=== PATIENT | female | born 1965 | race Caucasian/White ===

== ENCOUNTER → 2020-10-30 07:36 | Outpatient (CLI) | payer BC, SELFPAY ==
--- NOTE | ~2020-10-30 | XR_ITS ---
EXAMINATION: XR knee RT min 4V DATE: 10/30/2020 07:57 INDICATION: Right knee stiffness. TECHNIQUE: 4 views of right knee were obtained. COMPARISON: None. FINDINGS: Bone alignment is normal. No fracture. There is mild tricompartmental osteoarthritis. No kn ee joint effusion. IMPRESSION: 1. Mild right knee osteoarthritis. Reviewed, dictated and finalized at location B. R WORKER
== END ==
PROVIDERS: PCP Family Medicine; Visit Provider Physician Assistant Medical
DX: M17.11 Unilateral primary osteoarthritis, right knee (principal)
CPT/HCPCS: 73564

== ENCOUNTER → 2020-11-12 08:09 | Outpatient (CLI) | payer BC, SELFPAY ==
--- NOTE | ~2020-11-12 | US_ITS ---
US abdomen complete DATE: 11/12/2020 08:28 INDICATION: Elevated liver enzymes TECHNIQUE: Real-time and color flow imaging and Doppler analysis of the abdomen. COMPARISON: None FINDINGS: No hepatic or pancreatic space-occupying mass lesion. Normal hepatopedal portal vein flow d irection. No gallstones or gallbladder wall thickening. Negative sonographic Frank's sign. Common bi le duct measures 3 mm, normal. Normal caliber of the abdominal aorta. The inferior vena cava is unremarkable. Normal splenic size. Right kidney measures 12.2 cm length, left kidney 11.2 cm. No renal mass lesion or hydronephrosis. IMPRESSION: Normal examination Reviewed, dictated and finalized at Location [facility]. Reviewed, dictated and finalized at location A. HINOLARYNGOLOGIST IMPRESSION: Normal examination
== END ==
PROVIDERS: PCP Family Medicine; Visit Provider Family Medicine
DX: R74.8 Abnormal levels of other serum enzymes (principal)
CPT/HCPCS: 76700

== ENCOUNTER 2021-05-31 09:52 | Outpatient (CLI) | payer BC, SELFPAY ==
--- NOTE | 2021-05-31 10:14 | ECG_ITS ---
Measurements Intervals [place] Rate: 59 P: 68 NM: 159 QRS: 29 QRSD: 86 T: 18 QT: 384 QTc: 382 Interpretive Statements SINUS BRADYCARDIA BORDERLINE ECG Electronically Signed On 05-31-2021 11:48:12 CDT by Tyson Mullen D.O.
== END 2021-05-31 09:53 | disposition home or self-care (01) ==
PROVIDERS: PCP Family Medicine; Visit Provider Nurse Practitioner Family
DX: R53.1 Weakness (principal); R42 Dizziness and giddiness; R94.31 Abnormal electrocardiogram [ECG] [EKG]
CPT/HCPCS: 93005

== ENCOUNTER 2021-07-09 08:39 | Outpatient (CLI) | payer BC, SELFPAY | END 2021-07-09 08:40 | disposition home or self-care (01) | LOC: ANHBWCAUD 09:02 | PROVIDERS: PCP Family Medicine; Visit Provider Otolaryngology | DX: H93.12 Tinnitus, left ear (principal); H90.42 Sensorineural hearing loss, unilateral, left ear, with unrestricted hearing on the contralateral side | CPT/HCPCS: 92557; 92567 ==

== ENCOUNTER 2023-09-07 16:56 | Emergency (ER) | payer BC, SELFPAY ==
[2023-09-07 17:04] VITALS: BP 150/90; PULSE 63; RESP 20; TEMP 36.2; O2SAT 100
--- NOTE | 2023-09-07 17:07 | ED.SKABFB ---
HPI - Skin/Abscess/Foreign Bdy General Chief complaint: Skin/Abscess/Foreign Body Stated complaint: Rash Time Seen by Provider: 09/07/23 17:22 Source: patient and RN notes reviewed Mode of arrival: ambulatory Limitations: no limitations History of Present Illness HPI narrative: 58-year-old presents concern for itchy rash face. She reports she has had this rash in the past and has been treated with topical ointment that helped. She reports she thinks it may be soap that aggravates her skin. She denies swollen lips, swollen tongue, trouble breathing, nausea or vomiting. She denies any [id number] intervention. MD complaint: rash Related Data Allergies Allergy/AdvReac Type Severity Reaction Status Date / Time Penicillins Allergy Swelling Verified 05/13/21 16:29 Review of Systems Review of Systems: CONSTITUTIONAL: Denies malaise, chills, sweats, or fever. EYES: Denies redness, or discharge. ENT: Denies rhinorrhea, congestion, swollen lips, swollen tongue CARDIOVASCULAR: Denies chest pain, palpitations, or edema. RESPIRATORY: Denies cough or dyspnea. GASTROINTESTINAL: Denies abdominal pain, nausea, vomiting SKIN: Reports itchy rash on her face MUSCULOSKELETAL: Denies joint pain or myalgia. NEUROLOGIC: Denies headache. All systems reviewed & are unremarkable except as noted in HPI and below PMFSH Past Medical History Medical History BMI 30.0-30.9,adult BMI greater than 30 Decreased range of motion of right knee Depression Elevated liver enzymes History of deviated nasal septum Hypothyroidism Low vitamin B12 level Numbness of left hand Screening for lipid disorders Suicide attempt Surgical History Surgical History History of hip surgery Family History Family History Father Lung cancer Heart disease Mother Depression Sibling Depression Other Hypertension Social History Social History Second hand tobacco smoke exposure: Yes Smoking end date: 06/12/10 Alcohol intake: never Substance use: never Substance use type: does not use Living arrangements: alone Occupation/Education: occupation Additional occupation/education comments: [employer] Gender identity (if verbalized by the patient): Female Comments At time of signature, agree with nursing past medical, surgical, social and family history. There is no relevant family history pertinent to the presenting complaint Exam Narrative: GENERAL: Well-appearing, well-nourished, and in no acute distress. HEAD: Normocephalic, atraumatic. EYES: PERRLA, conjunctivae clear, and EOMI. ENT: Mucous membranes moist. Oropharynx without edema, erythema or lesions. NECK: Supple. No lymphadenopathy CHEST: Clear to auscultation. No respiratory distress. HEART: Regular rate and rhythm. SKIN: Warm, dry. Patches of slightly raised erythema noted to bilateral cheeks and chin NEURO: Alert and oriented x3. PSYCH: Normal mood and affect Course Course Emergency Course: Patient is aware of diagnosis, understands and agrees to treatment plan. Anticipatory guidance given. Patient agrees to follow-up as directed and is aware of reasons to seek care at the emergency department. Portions of this record may have been created with voice recognition software Level of Care: Express Care Visit Vital Signs Vital signs: Reviewed. MDM - Skin/Abscess/Foreign Bdy MDM Narrative Medical decision making narrative: Does not appear at this time to be erythema multiforme, bullous, SJS, TEN; no evidence at this time to suggest RMSF, endocarditis or Lyme disease; patient looks well, nontoxic and is tolerating oral intake; no neurologic signs or symptoms; no headache, photophobia or neck pain; afebrile; appropria
== END 2023-09-07 17:32 | disposition home or self-care (01) ==
PROVIDERS: Emergency Provider Nurse Practitioner; PCP Hospitalist
DX: L25.9 Unspecified contact dermatitis, unspecified cause (principal); E03.9 Hypothyroidism, unspecified
CPT/HCPCS: 99213; G0463

== ENCOUNTER 2023-10-07 14:27 | Outpatient (CLI) | payer BC, SELFPAY ==
[2023-10-07 19:06] LABS: Hematocrit 42.7 % (37.0-47.0); Mean Corpuscular HGB Conc 32.8 g/dl (32-36); Mean Corpuscular Hemoglobin 32.6 pg (26-34); Mean Corpuscular Volume 99.3 fl (80-100); Mean Platelet Volume 10.5 fl (7.4-10.4); Platelet Count Result 245 k/mm3 (150-375); Red Cell Distribution Width 12.2 % (11.5-14.5); White Blood Count 5.5 K/mm3 (4.5-10.0)
[2023-10-07 19:20] LABS: Alanine Aminotransferase 18 U/L (6-35); Albumin Level 4.3 g/dL (3.5-5.1); Alkaline Phosphatase 71 U/L (38-126); Anion Gap 6 mmol/L (8-16); Aspartate Amino Transferase 26 U/L (14-36); Bilirubin,Total 0.6 mg/dL (0.2-1.3); Blood Urea Nitrogen 14 mg/dL (7-17); Calcium 9.6 mg/dL (8.4-10.2); Carbon Dioxide 30 mmol/L (22-30); Chloride 105 mmol/L (98-107); Cholesterol 176 mg/dL (0-200); Estimated Glomerular Filt Rate > 60; Glucose 98 mg/dL (65-110); HDL Direct 69 mg/dL; Potassium 4.1 mmol/L (3.4-5.0); Sodium 141 mmol/L (137-145); Triglycerides 63 mg/dL (<150)
[2023-10-07 19:31] LABS: LDL Cholesterol Direct 82 mg/dL
[2023-10-07 19:50] LABS: Thyroid Stimulating Hormone 0.883 uIU/mL (0.465-4.680)
[2023-10-07 20:26] LABS: Folic Acid 8.4 ng/mL (2.76->20)
== END 2023-10-07 14:28 | disposition home or self-care (01) ==
LOC: ANHBWCLAB 14:29
PROVIDERS: PCP Nurse Practitioner Adult Health; Visit Provider Nurse Practitioner Adult Health
DX: Z13.9 Encounter for screening, unspecified (principal); E53.8 Deficiency of other specified B group vitamins
CPT/HCPCS: 36415; 80053; 80061; 82607; 82746; 84443; 85027

== ENCOUNTER 2023-12-11 09:51 | Emergency (ER) | payer BC, SELFPAY ==
[2023-12-11 09:59] VITALS: BP 176/89; PULSE 88; RESP 16; TEMP 36.7; O2SAT 99
--- NOTE | 2023-12-11 10:29 | ED.SKABFB ---
HPI - Skin/Abscess/Foreign Bdy General Chief complaint: Skin/Abscess/Foreign Body Stated complaint: Rash Time Seen by Provider: 12/11/23 10:40 Source: patient and RN notes reviewed Mode of arrival: ambulatory Limitations: no limitations History of Present Illness HPI narrative: 58-year-old female presents with concern for a rash in her inguinal area. Patient has multiple complaints, patient's train of thought is hard to follow. Her main complaint is a painful and itchy rash in her buttock, vaginal, anal area that she has had for several months. She reports despite hydrocortisone cream on it without relief. Reports become painful to have a bowel movement. A separate complaint she reports she has been having nausea and diarrhea, she had 1 episode of vomiting. Reports this is been going on for several months. She reports she took 3 bottles of Pepto-Bismol yesterday. She also reports dryness in her nasal passages. MD complaint: rash Related Data Allergies Allergy/AdvReac Type Severity Reaction Status Date / Time Penicillins Allergy Swelling Verified 12/11/23 10:16 Review of Systems Review of Systems: CONSTITUTIONAL: Denies malaise, chills, sweats, or fever. EYES: Denies redness, or discharge. ENT: Denies rhinorrhea, congestion, swollen lips, swollen tongue. Reports dryness in her nasal passages CARDIOVASCULAR: Denies chest pain, palpitations, or edema. RESPIRATORY: Denies cough or dyspnea. GASTROINTESTINAL: Denies abdominal pain. Reports nausea, diarrhea, 1 episode of vomiting SKIN: Reports painful in itchy rash in her anal and vaginal area MUSCULOSKELETAL: Denies joint pain or myalgia. NEUROLOGIC: Denies headache. All systems reviewed & are unremarkable except as noted in HPI and below PMFSH Past Medical History Medical History BMI 30.0-30.9,adult BMI greater than 30 Decreased range of motion of right knee Depression Elevated liver enzymes History of deviated nasal septum Hypothyroidism Low vitamin B12 level Numbness of left hand Screening for lipid disorders Suicide attempt Surgical History Surgical History History of hip surgery Family History Family History Father Lung cancer Heart disease Mother Depression Sibling Depression Other Hypertension Social History Social History (Updated 10/07/23 @ 13:57 by Amanda Snyder MA) Smoking status: Former smoker Second hand tobacco smoke exposure: Yes Smoking end date: 06/12/10 Alcohol intake: never Substance use: never Substance use type: does not use Lack of Transportation: No Lack of Food: Sometimes True Current Housing: I Have Housing Concerned About Future Housing: No Difficulty Paying Gas/Electric Bills: No Difficulty Paying for Meds: YES Currently Unemployed: No Education: Associate Degree Difficulty w/ Childcare or Family Care: No Living arrangements: alone Occupation/Education: occupation Additional occupation/education comments: [employer] Gender identity (if verbalized by the patient): Female Comments At time of signature, agree with nursing past medical, surgical, social and family history. There is no relevant family history pertinent to the presenting complaint Exam Narrative: GENERAL: Well-appearing, well-nourished, and in no acute distress. HEAD: Normocephalic, atraumatic. EYES: PERRLA, conjunctivae clear, and EOMI. ENT: Mucous membranes moist, no rash, bleeding noted in the nasal passages. Oropharynx without edema, erythema or lesions. NECK: Supple. No lymphadenopathy CHEST: Clear to auscultation. No respiratory distress. HEART: Regular rate and rhythm. SKIN: Warm, dry. Excoriated skin noted in the anal area and we via, skin Draper noted, consistent with fungal or yeast rash. Patient was noted t
== END 2023-12-11 11:30 | disposition home or self-care (01) ==
PROVIDERS: Emergency Provider Nurse Practitioner
DX: B37.2 Candidiasis of skin and nail (principal); R11.2 Nausea with vomiting, unspecified; R19.7 Diarrhea, unspecified; Z87.891 Personal history of nicotine dependence; E03.9 Hypothyroidism, unspecified
CPT/HCPCS: 99213; G0463